=== PATIENT | male | born 1995 | race Two or more races ===

== ENCOUNTER → 2017-09-14 | Emergency (ER) | payer OTHER ==
[~2017-09-14] VITALS: Ht 170.2 cm; Wt 63.5 kg
[~2017-09-14] MED LIST: OSEL75CA PO; PNEU16DI2
== END | disposition home or self-care (01) ==
LOC: ER 05:35
DX: J11.1 Influenza due to unidentified influenza virus with other respiratory manifestations (principal); R50.9 Fever, unspecified

== ENCOUNTER 2020-05-28 10:01 | Emergency (ER) | payer OTHER ==
[~2020-05-28] VITALS: Ht 170.2 cm; Wt 66.7 kg
== END 2020-05-28 15:54 | disposition home or self-care (01) ==
LOC: ER
DX: R35.0 Frequency of micturition (principal)

== ENCOUNTER 2021-08-11 11:46 | Emergency (ER) | payer OTHER ==
[~2021-08-11] VITALS: Ht 170.2 cm; Wt 66.7 kg
== END 2021-08-11 13:02 | disposition home or self-care (01) ==
LOC: ER 11:46
DX: H92.02 Otalgia, left ear (principal)

== ENCOUNTER 2021-08-16 05:01 | Emergency (ER) | payer OTHER ==
[~2021-08-16] VITALS: Ht 170.2 cm; Wt 66.7 kg
== END 2021-08-16 09:43 | disposition home or self-care (01) ==
LOC: ER 05:01 → EMR PED 05:02 → ER 09:43
DX: U07.1 COVID-19 (principal)

== ENCOUNTER 2022-04-19 02:58 | Emergency (ER) | payer OTHER ==
[~2022-04-19] VITALS: Ht 175.3 cm; Wt 65.8 kg
[2022-04-19] MEDS ORDERED: ORASEP SPRAY30 ML MM (06:24)
== END 2022-04-19 07:10 | disposition home or self-care (01) ==
LOC: ER 02:58
DX: B27.90 Infectious mononucleosis, unspecified without complication (principal); J03.90 Acute tonsillitis, unspecified

== ENCOUNTER 2022-04-20 08:41 | Emergency (ER) | payer OTHER ==
[~2022-04-20] VITALS: Ht 167.6 cm; Wt 66.7 kg
[~2022-04-20 08:41] MED LIST changes: +ORASEP SPRAY30 ML MM
== END 2022-04-20 15:18 | disposition home or self-care (01) ==
LOC: ER 08:41
DX: K29.70 Gastritis, unspecified, without bleeding (principal)

== ENCOUNTER 2023-01-19 00:41 | Emergency (ER) | payer OTHER ==
[~2023-01-19] VITALS: Ht 167.6 cm; Wt 63.5 kg
== END 2023-01-19 04:02 | disposition home or self-care (01) ==
LOC: ER 00:41
DX: J02.0 Streptococcal pharyngitis (principal)

== ENCOUNTER 2023-01-19 18:59 | Emergency (ER) | payer OTHER ==
[~2023-01-19] VITALS: Ht 167.6 cm; Wt 63.5 kg
== END 2023-01-19 23:24 | disposition home or self-care (01) ==
LOC: ER 18:59
DX: T36.1X5A Adverse effect of cephalosporins and other beta-lactam antibiotics, initial encounter (principal); Y92.9 Unspecified place or not applicable; K29.70 Gastritis, unspecified, without bleeding

== ENCOUNTER 2023-03-17 11:12 | Emergency (ER) | payer OTHER ==
[~2023-03-17] VITALS: Ht 167.6 cm; Wt 64.4 kg
== END 2023-03-17 14:39 | disposition home or self-care (01) ==
LOC: ER 11:12
DX: J02.9 Acute pharyngitis, unspecified (principal); Z20.822 Contact with and (suspected) exposure to COVID-19